=== PATIENT | male | born 1960 | race Caucasian/White ===

== ENCOUNTER 2018-09-05 09:48 | Emergency (ER) | payer MEDICAID ==
[~2018-09-05] VITALS: Ht 182.9 cm; Wt 111.6 kg
[2018-09-05 10:02] VITALS: BP 136/67
--- NOTE | 2018-09-05 11:07 | NUR ---
Patient discharged to home in stable condition. Written and verbal after care instructions given. Patient verbalizes understanding of instruction.
== END 2018-09-05 11:09 | disposition home or self-care (01) ==
LOC: ER 09:51
DX: G89.29 Other chronic pain (principal); E78.5 Hyperlipidemia, unspecified; I72.9 Aneurysm of unspecified site; Z86.73 Personal history of transient ischemic attack (TIA), and cerebral infarction without residual deficits; Z86.718 Personal history of other venous thrombosis and embolism

== ENCOUNTER 2018-10-04 10:09 | Emergency (ER) | payer MEDICAID ==
[~2018-10-04] VITALS: Ht 182.9 cm; Wt 121.1 kg
--- NOTE | 2018-10-04 10:25 | NUR ---
AAOX3, CAME TO ER C/O BLOOD IN THE STOOL AND LOWER ABDOMINAL PAIN X 2 DAYS. DENIES TAKING ANY BLOOD THINNER. RR IS EVEN AND UNLABORED WITH NAD NOTED. SKIN IS WARM AND DRY. DR YOUNGBLOOD AT BS FOR EVAL.
[2018-10-04] MEDS ORDERED: ONDANSETRON HCL/PF 4 MG/2 ML VIAL IVP ONE (10:30)
[2018-10-04] MEDS ORDERED: IV NS 0.9% 1,000 ML BAG IV ONE (10:30)
[2018-10-04] MEDS ORDERED: MORPHINE SULFATE INJ 2 MG/ML DISP.SYRIN IV ONE (10:30)
[2018-10-04] MEDS ORDERED: MORPHINE SULFATE INJ 4 MG/ML DISP.SYRIN ONE (10:38)
[2018-10-04] MEDS ORDERED: ONDANSETRON HCL/PF 4 MG/2 ML VIAL ONE (10:38)
[2018-10-04 10:45] LABS: BASOPHILS # (AUTO) 0.1 /CMM (0.0-0.2); BASOPHILS % (AUTO) 0.9 % (0.0-2.0); EOSINOPHILS % (AUTO) 2.4 % (0.0-6.0); HEMATOCRIT 43 % (39-51); HEMOGLOBIN 14.6 g/dL (13.5-17.5); LYMPHOCYTES # (AUTO) 1.8 /CMM (0.8-4.8); LYMPHOCYTES % (AUTO) 22.8 % (20.0-44.0); MEAN CORPUSCULAR HGB CONC 34 g/dl (31.0-36.0); MEAN CORPUSCULAR VOLUME 86 fL (80-96); MONOCYTES # (AUTO) 0.6 /CMM (0.1-1.30); MONOCYTES % (AUTO) 7.9 % (2.0-12.0); NEUTROPHILS # (AUTO) 5.2 /CMM (1.8-8.9); PLATELET COUNT (AUTO) 249 /CMM (150-450); RED BLOOD CELL COUNT(AUTO) 5.03 MIL/uL (4.5-6.0); WHITE BLOOD COUNT (AUTO) 7.9 K/uL (4.3-11.0)
[2018-10-04] MEDS ORDERED: FURO-145 PO (10:50)
[2018-10-04] MEDS ORDERED: RIVA10TA PO (10:50)
[2018-10-04] MEDS ORDERED: LOVA20TA2 PO (10:50)
[2018-10-04] MEDS ORDERED: TIOT18CA3 IH (10:50)
[2018-10-04 10:51] LABS: CALCIUM, SERUM 8.6 mg/dL (8.5-10.1); CREATININE 1.3 mg/dL (0.6-1.3); POTASSIUM 2.9 mmol/L (3.5-5.1)
[2018-10-04 10:57] LABS: ALBUMIN 3.1 g/dL (3.4-5.0); BILIRUBIN,DIRECT 0.1 mg/dL (0.0-0.2); BILIRUBIN,TOTAL 0.6 mg/dL (0.2-1.0); TOTAL PROTEIN, SERUM 7.1 g/dL (6.4-8.2)
--- NOTE | 2018-10-04 12:28 | NUR ---
IV removed. Catheter intact and site benign. Pressure and 4x4 applied to site. No bleeding noted.Patient discharged to home in stable condition. Written and verbalX after care instructions given. Patient verbalizes understanding of instruction.
[2018-10-04] MEDS ORDERED: METRONIDAZOLE 500 MG TABLET PO ONE (12:30)
[2018-10-04] MEDS ORDERED: CIPROFLOXACIN HCL 250 MG TABLET PO ONE (12:30)
[2018-10-04 12:32] VITALS: BP 138/80
== END 2018-10-04 12:30 | disposition home or self-care (01) ==
LOC: ER 10:13
DX: K62.5 Hemorrhage of anus and rectum (principal); K63.89 Other specified diseases of intestine; E78.5 Hyperlipidemia, unspecified; I72.9 Aneurysm of unspecified site; Z59.0 Homelessness; Z95.5 Presence of coronary angioplasty implant and graft; Z88.6 Allergy status to analgesic agent
CPT/HCPCS: 36415; 74176; 80048; 80076; 85025; 85730; 86850; 96374; 96375; 99284; A4606; J2270; J2405; J7030

== ENCOUNTER 2018-10-14 04:35 | Emergency (ER) | payer MEDICAID ==
[~2018-10-14] VITALS: Ht 182.9 cm; Wt 112.0 kg
[~2018-10-14 04:35] MED LIST: FURO-145 PO; LOVA20TA2 PO; RIVA10TA PO; TIOT18CA3 IH
--- NOTE | 2018-10-14 05:16 | NUR ---
PT BIBS. C/O "HAVING L SIDED RIB PAIN FOR AROUND 2 DAYS, BLOODY DIARRHEA WELL" -SOB -ACUTE DISTRESS AT THIS TIME. AMBULATORY W.STEADY GAIT.
[2018-10-14] MEDS ORDERED: HYDROCODONE/APAP 5/325MG 1 EACH TABLET ONE (05:20)
[2018-10-14] MEDS ORDERED: IBUPROFEN 600 MG TABLET PO ONE ×2 (05:28→06:00)
[2018-10-14] MEDS ORDERED: HYDROCODONE/APAP 5/325MG 1 EACH TABLET PO ONE (05:30)
--- NOTE | 2018-10-14 05:30 | NUR ---
V.O FROM DR PAIZ FOR 600MG MOTRIN. AWARE OF PT ALLERGIES.
--- NOTE | 2018-10-14 06:30 | NUR ---
Patient is resting comfortably in bed with eyes closed. Easily aroused. VSS
--- NOTE | 2018-10-14 07:30 | NUR ---
Patient is resting comfortably in bed with eyes closed. Easily aroused. VSS
--- NOTE | 2018-10-14 08:50 | NUR ---
Patient discharged to home in stable condition. Written and verbal after care instructions given. Patient verbalizes understanding of instruction. Patient provided with resources and states that he lives in his car. Patient was given food and signed the waiver.
[2018-10-14 09:17] VITALS: BP 122/78
== END 2018-10-14 08:55 | disposition home or self-care (01) ==
LOC: ER 04:39
DX: R07.89 Other chest pain (principal); E78.5 Hyperlipidemia, unspecified; Z59.0 Homelessness; Z95.1 Presence of aortocoronary bypass graft; Z88.6 Allergy status to analgesic agent
CPT/HCPCS: 71100; 99283; A4606

== ENCOUNTER 2019-11-26 14:12 | Emergency (ER) | payer MEDICAID, OTHER ==
[~2019-11-26] VITALS: Ht 185.4 cm; Wt 102.1 kg
[2019-11-26 14:31] VITALS: BP 154/77
--- NOTE | 2019-11-26 14:59 | NUR ---
Patient given written and verbal discharge instructions. Patient verbalizes understanding of instructions. Patient is ambulatory with steady gait. Refuses offer of care home placement. Patient given list of available shelters in surrounding area.
== END 2019-11-26 15:05 | disposition home or self-care (01) ==
LOC: ER 14:12
DX: B86 Scabies (principal); E78.5 Hyperlipidemia, unspecified; Z59.0 Homelessness; Z86.73 Personal history of transient ischemic attack (TIA), and cerebral infarction without residual deficits; Z88.6 Allergy status to analgesic agent; Z79.899 Other long term (current) drug therapy

== ENCOUNTER 2019-12-01 12:09 | Emergency (ER) | payer OTHER ==
[~2019-12-01] VITALS: Ht 182.9 cm; Wt 108.9 kg
[2019-12-01 12:10] VITALS: BP 144/67
[2019-12-01 13:44] LABS: BASOPHILS # (AUTO) 0.1 /CMM (0.0-0.2); BASOPHILS % (AUTO) 0.9 % (0.0-2.0); EOSINOPHILS % (AUTO) 1.3 % (0.0-6.0); HEMATOCRIT 47 % (39-51); HEMOGLOBIN 15.8 g/dL (13.5-17.5); LYMPHOCYTES # (AUTO) 1.8 /CMM (0.8-4.8); LYMPHOCYTES % (AUTO) 20.8 % (20.0-44.0); MEAN CORPUSCULAR HGB CONC 34 g/dl (31.0-36.0); MEAN CORPUSCULAR VOLUME 89 fL (80-96); MONOCYTES # (AUTO) 0.6 /CMM (0.1-1.30); MONOCYTES % (AUTO) 6.6 % (2.0-12.0); NEUTROPHILS # (AUTO) 6.1 /CMM (1.8-8.9); NEUTROPHILS % (AUTO) 70.4 % (43.0-81.0); PLATELET COUNT (AUTO) 272 /CMM (150-450); RED BLOOD CELL COUNT(AUTO) 5.29 MIL/uL (4.5-6.0); WHITE BLOOD COUNT (AUTO) 8.7 K/uL (4.3-11.0)
[2019-12-01 13:52] LABS: CALCIUM, SERUM 8.4 mg/dL (8.5-10.1); CREATININE 1.4 mg/dL (0.6-1.3); POTASSIUM 3.6 mmol/L (3.5-5.1)
== END 2019-12-01 14:53 | disposition home or self-care (01) ==
LOC: ER 12:15
DX: L02.415 Cutaneous abscess of right lower limb (principal); E78.5 Hyperlipidemia, unspecified; Z88.6 Allergy status to analgesic agent; Z59.0 Homelessness; Z79.899 Other long term (current) drug therapy; Z86.73 Personal history of transient ischemic attack (TIA), and cerebral infarction without residual deficits
CPT/HCPCS: 36415; 80048-TC; 85025-TC; 87040-TC

== ENCOUNTER 2020-12-13 15:15 | Emergency (ER) | payer OTHER ==
[~2020-12-13] VITALS: Ht 170.2 cm; Wt 116.1 kg
--- NOTE | 2020-12-13 15:35 | NUR ---
THE PATIENT PRESENTED TO ER FOR C/O RT LEG PAIN & BLOOD IN STOOL. HX OF DVT PER PATIENT. RATES PAIN 8/10. ATTACHED TO THE MONITOR. WILL CONTINUE TO MONITOR THE PATIENT.
[2020-12-13 16:23] LABS: BASOPHILS % (AUTO) 0.4 % (0.0-2.0); EOSINOPHILS % (AUTO) 1.5 % (0.0-6.0); HEMATOCRIT 48 % (39-51); HEMOGLOBIN 16.1 g/dL (13.5-17.5); LYMPHOCYTES # (AUTO) 2.1 /CMM (0.8-4.8); MEAN CORPUSCULAR HGB CONC 34 g/dl (31.0-36.0); MEAN CORPUSCULAR VOLUME 96 fL (80-96); NEUTROPHILS # (AUTO) 8.9 /CMM (1.8-8.9); NEUTROPHILS % (AUTO) 73.1 % (43.0-81.0); PLATELET COUNT (AUTO) 277 /CMM (150-450); RED BLOOD CELL COUNT(AUTO) 4.99 MIL/uL (4.5-6.0); WHITE BLOOD COUNT (AUTO) 12.2 K/uL (4.3-11.0)
--- NOTE | 2020-12-13 16:32 | NUR ---
URINE COLLECTED AND SENT TO THE LAB
[2020-12-13 16:35] LABS: CALCIUM, SERUM 8.2 mg/dL (8.5-10.1); CREATININE 1.4 mg/dL (0.6-1.3); POTASSIUM 3.7 mmol/L (3.5-5.1)
[2020-12-13 16:46] LABS: BILIRUBIN,URINE NEGATIVE (NEGATIVE); COLOR,URINE YELLOW (YELLOW); LEUKOCYTE ESTERASE ,URINE NEGATIVE (NEGATIVE); NITRITE, URINE NEGATIVE (NEGATIVE); PH,URINE 5.5 (5.0-8.0); PROTEIN,URINE NEGATIVE (NEGATIVE); UGLUCOSE NEGATIVE (NEGATIVE); UROBILINOGEN,URINE 0.2 EU/dL (0.2)
[2020-12-13] MEDS ORDERED: TRAM50TA2 PO (16:46)
[2020-12-13] MEDS ORDERED: TRAMADOL HCL 50 MG TABLET ONE (16:48)
[2020-12-13 17:00] LABS: BACTERIA,URINE RARE /HPF (None Seen); SQUAMOUS EPITHELIAL CELL,UR 0-2 /HPF (None Seen); WBC,URINE 0-2 /HPF (0-3)
[2020-12-13] MEDS ORDERED: TRAMADOL HCL 50 MG TABLET PO ONE (17:00)
[2020-12-13] MEDS ORDERED: CEFTRIAXONE 1GM BAG (ER ONLY) 50 ML IV ONE (17:00)
--- NOTE | 2020-12-13 17:00 | NUR ---
The patient alert and oriented x4. Patient discharged to home in stable condition. Written and verbal after care instructions given. Patient verbalizes understanding of instruction.
[2020-12-13 17:01] VITALS: BP 134/81
== END 2020-12-13 17:01 | disposition home or self-care (01) ==
LOC: ER 15:15
DX: M79.604 Pain in right leg (principal); K62.5 Hemorrhage of anus and rectum; E78.5 Hyperlipidemia, unspecified; Z86.718 Personal history of other venous thrombosis and embolism; Z88.6 Allergy status to analgesic agent; Z59.0 Homelessness; Z79.899 Other long term (current) drug therapy
CPT/HCPCS: 36415; 80048-TC; 81001; 85025-TC; 85730-TC; 93971-TC

== ENCOUNTER 2020-12-21 13:53 | Emergency (ER) | payer OTHER ==
[~2020-12-21] VITALS: Ht 182.9 cm; Wt 117.0 kg
[~2020-12-21 13:53] MED LIST changes: +TRAM50TA2 PO
--- NOTE | 2020-12-21 14:18 | NUR ---
patient came in to the er c/o right foot pain s/p tripped and fall while getting out of his car x 6 days, 10/10 pain scale. On room air, breathing evenly and unlabored. Connected to the monitor and pulse ox. Kept comfortable, will continue to monitor accordingly.
[2020-12-21 14:43] LABS: BASOPHILS # (AUTO) 0.1 /CMM (0.0-0.2); BASOPHILS % (AUTO) 0.5 % (0.0-2.0); EOSINOPHILS % (AUTO) 1.1 % (0.0-6.0); HEMATOCRIT 48 % (39-51); HEMOGLOBIN 16.1 g/dL (13.5-17.5); LYMPHOCYTES # (AUTO) 2.2 /CMM (0.8-4.8); LYMPHOCYTES % (AUTO) 17.2 % (20.0-44.0); MEAN CORPUSCULAR HGB CONC 34 g/dl (31.0-36.0); MEAN CORPUSCULAR VOLUME 96 fL (80-96); MONOCYTES # (AUTO) 0.9 /CMM (0.1-1.30); MONOCYTES % (AUTO) 6.8 % (2.0-12.0); NEUTROPHILS # (AUTO) 9.5 /CMM (1.8-8.9); NEUTROPHILS % (AUTO) 74.4 % (43.0-81.0); PLATELET COUNT (AUTO) 254 /CMM (150-450); RED BLOOD CELL COUNT(AUTO) 4.98 MIL/uL (4.5-6.0); WHITE BLOOD COUNT (AUTO) 12.8 K/uL (4.3-11.0)
--- NOTE | 2020-12-21 14:56 | NUR ---
CALLED DR. PEREIRA, SPEAKING WITH DR. HELLER.
[2020-12-21 14:59] LABS: CALCIUM, SERUM 8.7 mg/dL (8.5-10.1); CARBON DIOXIDE 24 mmol/L (21-32); CHLORIDE 103 mmol/L (98-107); CREATININE 1.5 mg/dL (0.6-1.3); GLUCOSE 114 mg/dL (74-106); POTASSIUM 3.5 mmol/L (3.5-5.1); SODIUM SERUM 139 mmol/L (136-145); UREA NITROGEN, BLOOD 21 mg/dL (7-18)
[2020-12-21] MEDS ORDERED: MORPHINE SULFATE INJ 2 MG/ML DISP.SYRIN IV ONE ×2 (15:00→18:30)
[2020-12-21] MEDS ORDERED: ONDANSETRON HCL/PF 4 MG/2 ML VIAL IVP ONE (15:00)
[2020-12-21] MEDS ORDERED: TRAM50TA2 PO (15:03)
[2020-12-21] MEDS ORDERED: ONDANSETRON HCL/PF 4 MG/2 ML VIAL ONE (15:09)
[2020-12-21] MEDS ORDERED: MORPHINE SULFATE INJ 4 MG/ML DISP.SYRIN ONE ×2 (15:09→18:06)
[2020-12-21] MEDS ORDERED: HEPARIN INFUSION/D5W 500 ML IV ONE (16:00)
[2020-12-21] MEDS ORDERED: HEPARIN SODIUM, PORCINE 5000 UNITS/1 ML VIAL IV ONE (16:00)
[2020-12-21] MEDS ORDERED: HEPARIN SODIUM, PORCINE 5000 UNITS/1 ML VIAL ONE (16:34)
--- NOTE | 2020-12-21 16:45 | NUR ---
JOSHUA MCCARTHY AWAITING THE LOWER EXTREMETY ARTERIAL STUDY TO BE READ. CALLED RADIOLOGY.
--- NOTE | 2020-12-21 17:15 | NUR ---
LAB CALLED RE: COVID NEGATIVE RESULT.
--- NOTE | 2020-12-21 18:47 | NUR ---
CALLED RADIOLOGY AGAIN AWAITING REPORT TO BE READ THAT WAS DONE AT [id number]
--- NOTE | 2020-12-21 18:48 | NUR ---
HYDRAULIC BILLET MAKER SEJAL CALLED AT [phone] SINCE WE HAVEN'T RECEIVE THE ARTERIAL STUDY RESULT UP TO NOW.
--- NOTE | 2020-12-21 18:51 | NUR ---
SHARI CALLED DR. REYES VASCULAR SPEAKING WITH DR. HELLER
--- NOTE | 2020-12-21 20:55 | NUR ---
PT PLACED ON O2 VIA NC @ 4LPM PT NOTED SATTING AT 91% ON RA.
[2020-12-21] MEDS ORDERED: MAG HYDROX/AL HYDROX/SIMETH 30 ML UDC ONE (22:21)
[2020-12-21] MEDS ORDERED: MAG HYDROX/AL HYDROX/SIMETH 30 ML UDC PO ONE (22:30)
[2020-12-22] MEDS ORDERED: MORPHINE SULFATE INJ 4 MG/ML DISP.SYRIN ONE ×2 (00:17→05:40)
[2020-12-22] MEDS ORDERED: MORPHINE SULFATE INJ 2 MG/ML DISP.SYRIN IV ONE (00:30)
--- NOTE | 2020-12-22 00:47 | NUR ---
[facility] CALLED FOR HIGHER LEVEL OF CARE.
--- NOTE | 2020-12-22 00:52 | NUR ---
CALL BACK FROM RYLEE SY[facility]. NO BED AVAILABILITY
--- NOTE | 2020-12-22 00:54 | NUR ---
[facility] CALLED FOR HIGHER LEVEL OF CARE. [facility] FAXED.
--- NOTE | 2020-12-22 01:06 | NUR ---
CALL FROM [facility]. PT ACCEPTED TO [facility], ROOM 5A-118A. DR REYES. # FOR REPORT [phone]
--- NOTE | 2020-12-22 01:10 | NUR ---
[facility] CALLED FOR CCT TRANSPORT. NO CCT AVAILABLE.
--- NOTE | 2020-12-22 01:13 | NUR ---
[facility] CALLED FOR CCT TRANSPORT. NO RN AVAILABLE.
--- NOTE | 2020-12-22 01:26 | NUR ---
INCREASED HEPARIN INFUSION BY 400 UNITS. NOW RUNNING AT 2200UNITS/HR
[2020-12-22] MEDS ORDERED: HEPARIN SODIUM, PORCINE 5000 UNITS/1 ML VIAL ONE (01:27)
--- NOTE | 2020-12-22 01:31 | NUR ---
[facility] CALLED FOR TRANSPORT. TRIP# [id number]
--- NOTE | 2020-12-22 01:33 | NUR ---
IVP 8000UNITS OF HEPARIN GIVEN.
[2020-12-22] MEDS ORDERED: HEPARIN SODIUM,PORCINE/PF 50 UNIT/5 ML DISP.SYRIN IV ONE (02:00)
--- NOTE | 2020-12-22 02:52 | NUR ---
Call back from [facility] the Car. [facility] eta [phone].
--- NOTE | 2020-12-22 02:55 | NUR ---
PTT REDRAW [id number]
--- NOTE | 2020-12-22 03:07 | NUR ---
REPORT GIVEN TO DAR FREDERICK FOR JORGE
--- NOTE | 2020-12-22 05:24 | NUR ---
PT REMAINS ASLEEP, VSS.
[2020-12-22] MEDS ORDERED: MORPHINE SULFATE INJ 10 MG/ML DISP.SYRIN IV ONE (06:00)
--- NOTE | 2020-12-22 07:15 | NUR ---
received report from cardiology consultants, patient awake, and alert, in no distress, no signs and symptoms of bleeding noted. Heparin drip infusing at 2200units/kg/hr. Will continue to monitor accordingly.
--- NOTE | 2020-12-22 08:42 | NUR ---
Held heparin drip x 1 hour, PTT 91.4 secs. Will follow heparin drip protocol after 1 hour.
[2020-12-22 08:53] VITALS: BP 118/71
--- NOTE | 2020-12-22 10:08 | NUR ---
PATIENT TRANSFERRED TO [facility], IN STABLE CONDITION. REPORT GIVEN TO PARAFFIN PLANT OPERATOR. IN NO DISTRESS. PAPERWORKS GIVEN TO PARAFFIN PLANT OPERATOR.
== END 2020-12-22 10:10 | disposition short-term general hospital (02) ==
LOC: ER 13:56
DX: I73.9 Peripheral vascular disease, unspecified (principal); E78.5 Hyperlipidemia, unspecified; Z86.718 Personal history of other venous thrombosis and embolism; Z79.01 Long term (current) use of anticoagulants; Z86.73 Personal history of transient ischemic attack (TIA), and cerebral infarction without residual deficits; Z59.0 Homelessness; Z79.899 Other long term (current) drug therapy; M85.80 Other specified disorders of bone density and structure, unspecified site; Z20.822 Contact with and (suspected) exposure to COVID-19
CPT/HCPCS: 36415 ×2; 71045; 73630; 80048; 84484; 85025; 85610 ×3; 85730 ×3; 87426; 93005; 93926; 96365 ×2; 96366 ×2; 96375 ×2; 96376 ×2; 99285; C9803; J1644 ×4; J2270 ×4; J2405; J1642

== ENCOUNTER 2021-02-18 10:19 | Inpatient (IN) | payer OTHER ==
[~2021-02-18] VITALS: Ht 185.4 cm; Wt 112.5 kg
--- NOTE | 2021-02-18 10:42 | NUR ---
PT ARRIVED TO ER WITH PAIN AND DRAINAGE TO SITE OF R BKA. ALERT AND ORIENTED X3.
[2021-02-18] MEDS ORDERED: HYDROCODONE/APAP 5/325MG TABLET PO ONE (11:00)
[2021-02-18] MEDS ORDERED: HYDROCODONE/APAP 5/325MG TABLET ONE (11:03)
--- NOTE | 2021-02-18 11:08 | NUR ---
MEDICATION NORCO [phone] GIVEN
[2021-02-18 11:14] LABS: BASOPHILS # (AUTO) 0.1 K/uL (0.0-0.2); BASOPHILS % (AUTO) 0.7 % (0.0-2.0); EOSINOPHILS % (AUTO) 0.6 % (0.0-6.0); HEMATOCRIT 41 % (39-51); HEMOGLOBIN 13.7 g/dL (13.5-17.5); LYMPHOCYTES # (AUTO) 2.3 K/uL (0.8-4.8); LYMPHOCYTES % (AUTO) 15.5 % (20.0-44.0); MEAN CORPUSCULAR HGB CONC 33 g/dl (31.0-36.0); MEAN CORPUSCULAR VOLUME 88 fL (80-96); MONOCYTES # (AUTO) 1.4 K/uL (0.1-1.30); MONOCYTES % (AUTO) 9.3 % (2.0-12.0); NEUTROPHILS # (AUTO) 11.2 K/uL (1.8-8.9); NEUTROPHILS % (AUTO) 73.9 % (43.0-81.0); PLATELET COUNT (AUTO) 421 K/uL (150-450); RED BLOOD CELL COUNT(AUTO) 4.69 MIL/uL (4.5-6.0); WHITE BLOOD COUNT (AUTO) 15.2 K/uL (4.3-11.0)
[2021-02-18 11:37] LABS: CALCIUM, SERUM 9.1 mg/dL (8.5-10.1); CREATININE 2.5 mg/dL (0.6-1.3); POTASSIUM 3.4 mmol/L (3.5-5.1)
[2021-02-18 11:43] LABS: ALBUMIN 3.6 g/dL (3.4-5.0); BILIRUBIN,DIRECT 0.2 mg/dL (0.0-0.2); BILIRUBIN,TOTAL 0.6 mg/dL (0.2-1.0); TOTAL PROTEIN, SERUM 9.2 g/dL (6.4-8.2)
--- NOTE | 2021-02-18 13:58 | NUR ---
wound swab from right bka wound done and sent to the lab
--- NOTE | 2021-02-18 14:12 | NUR ---
room 109
--- NOTE | 2021-02-18 14:43 | NUR ---
report given to nurse Soon
--- NOTE | 2021-02-18 15:00 | NUR ---
THE PATIENT IS TRANSFERED TO ROOM 109 PER POLICY
--- NOTE | 2021-02-18 15:10 | NUR ---
RN NOTE PATIENT OBSERVED ON BED, AWAKE ALERT AND ORIENTED X4, ADMITTING PATIENT FROM ER, REPORT RECIEVED FROM CHARGE NURSE, WILL ADMIT TO PATIENT ON ROOM 109.
--- NOTE | 2021-02-18 15:47 | NUR ---
RN NOTE PATIENT ALERT AND ORIENTED X4 ABLE TO VERBALIZE NEEDS, PATIENT REFUSED BODY CHECK ASSESSMENT ON, MD MADE AWARE, PATIENT WITH IV SITE ON LEFT HAND PATENT FLUSHING WELL, WILL CONTINUE TO MONITOR PATIENT.
--- NOTE | 2021-02-18 15:53 | NUR ---
RN NOTE PATIENT NOTED WITH A EDGAR PACK, PATIENT REFUSED EDGAR PACK TO BE INSPECTED, ASK IF THERE IS ANY SHARP OBJECT OR ANY SENIOR COMMISSIONS ANALYST OR LIGHT MATCHES OR ANY ILLEGAL SUBSTANCE, PATIENT VERBALIZE HE DOES NOT OWN ANY OF THAT ITS ONLY HIS WALLET AND PHONE.
[2021-02-18 16:00] VITALS: BP 122/70
[2021-02-18] MEDS ORDERED: ONDANSETRON HCL/PF 4 MG/2 ML VIAL IVP PRN (16:30)
[2021-02-18] MEDS ORDERED: MAGNESIUM HYDROXIDE 30 ML UDC PO PRN (16:30)
[2021-02-18] MEDS ORDERED: DEXTROSE 50%-WATER 50 ML DISP.SYRIN IV PRN (16:30)
[2021-02-18] MEDS ORDERED: ACETAMINOPHEN 325 MG TABLET PO PRN (16:30)
[2021-02-18] MEDS ORDERED: Z GUARD REMEDY 2 OZ OINT TP PRN (16:30)
[2021-02-18] MEDS ORDERED: MAG HYDROX/AL HYDROX/SIMETH 30 ML UDC PO PRN (16:30)
[2021-02-18] MEDS ORDERED: *INSULIN REGULAR(HUMULIN R)HUM 100 UNIT/ML VIAL SQ PRN (16:30)
[2021-02-18] MEDS: BLOOD SUGAR DIAGNOSTIC 1 EACH STRIP VI SCH ×2 (17:02→21:37)
[2021-02-18] MEDS: IV NS 0.9% 1,000 ML IV SCH (17:10)
[2021-02-18] MEDS: INSULIN REGULAR, HUMAN 100 UNIT/ML 3 ML VIAL SQ PRN (17:37)
[2021-02-18] MEDS: RIVAROXABAN 15 MG TABLET PO SCH (17:38)
[2021-02-18] MEDS: VANCOMYCIN 1 GM in IV D5W 250ml IV SCH (17:40)
--- NOTE | 2021-02-18 19:25 | NUR ---
RN NOTE PATIENT OBSERVED IN BED, AWAKE, BREATHING EVEN AND UNLABORED, ON IFV NORMAL NS @75CC/HR ON LEFT AC, IV ATB GIVEN ORDERED, NO ASE NOTED, ENDORSED TO NOC SHIFT WOUND TREATMENT DONE ON RIGHT BKA, REFUSED LEFT HEEL WOUND TREATMENT, MD MADE NOTIFIED, WILL CONTINUE TO MONITOR, BED WHEELS LOCK, CALL LIGHT WITHIN REACH, SAFETY MEASURES OBSERVED.
[2021-02-18] MEDS: IPRATROPIUM NEB FS 0.5 MG/2.5 ML AMPUL.NEB NEB SCH (19:30)
--- NOTE | 2021-02-18 20:00 | NUR ---
RN NOTE PT DECLINED ASSESSMENT STATING THE OTHER NURSE ALREADY CHECKED HIM. PT HAS EDGAR PACK ON HIS CHEST THAT HE WILL NOT REMOVE OR ALLOW TO BE CHECKED. PT STATES HE IS NOT ABOUT TO LOSE HIS THINGS AGAIN.
--- NOTE | 2021-02-18 20:01 | NUR ---
PT REFUSED VITAL SIGNS
[2021-02-18 21:00] VITALS: BP 132/82
--- NOTE | 2021-02-18 21:40 | NUR ---
RN NOTE PT C/O RIGHT ELBOW AND IS REQUESTING XRAY. PT STATES HE FELL FOUR TIMES PRIOR TO COMING TO HOSPITAL. PER PT HE CAN NOT EXTEND ARM. NOTIFIED [employer] OFFICER RACHELLE ONEILL W/ORDERS FOR ELBOW XRAY NOTED.
[2021-02-18] MEDS: TRAMADOL HCL 50 MG TABLET PO PRN (21:49)
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
[2021-02-19] MEDS: IPRATROPIUM NEB FS 0.5 MG/2.5 ML AMPUL.NEB NEB SCH ×4 (01:30→19:30)
--- NOTE | 2021-02-19 01:48 | NUR ---
RT neb tx not given due to pending covid lab results
[2021-02-19 04:00] VITALS: BP 107/55
[2021-02-19] MEDS: TRAMADOL HCL 50 MG TABLET PO PRN (04:41)
--- NOTE | 2021-02-19 04:48 | NUR ---
PLANNING COORDINATOR PT DECLINED TO HAVE IF FLUIDS RUNNING, PT LAYING ON IV TUBING SETTING OFF ALARM MULTIPLE TIMES. IV SITE CHANGED PT SAID IF WAS THE IVS FAULT NOT HIS HOWEVER PT REPEATEDLY PUT PRESSURE ON TUBING CAUSING OCCLUSION AND PT WOULD BECOME UPSET THE IV WAS ALARMING.
--- NOTE | 2021-02-19 04:53 | NUR ---
MS RN PT GIVEN TRAMADOL/ ULTRAM FOR ELBOW PAIN. PT STARTED "CRYING" WHEN HE THOUGHT HE WAS GETTING MOTRIN. PT YELLING HE WANTED THE LITTLE WHITE PILL.
[2021-02-19] MEDS: IV NS 0.9% 1,000 ML IV SCH ×2 (05:04→22:46)
--- NOTE | 2021-02-19 06:12 | NUR ---
RN NOTE PT REFUSED BLOOD DRAW. PT TOLD LINK WIRE FABRIC MACHINE OPERATOR TO GET BLOOD FROM SALINE LOCK. EXPLAINED TO PT WE ARE UNABLE TO GET BLOOD FROM IV AFTER IT HAS BEEN ESTABLISHED. PT STILL REFUSED.
--- NOTE | 2021-02-19 07:10 | NUR ---
RN NOTE PATIENT OBSERVED IN BED, MAKING CONVERSATION BY HIMSELF IN THE ROOM, PATIENT IS FOR PSYCH CONSULT ORDERED BY DR. DICKINSON, [facility] NURSE ENDORSED THAT PATIENT HAS BEEN REFUSING BLOOD DRAW FOR AM LABS AND WOUND TREATMENT, PATIENT IS FOR WOUND CONSULT ORDERED, AFEBRILE AT THIS TIME, PATIENT REFUSED HS BLOOD SUGAR FINGER STICK CHECK, MD WAS MADE AWAREBY [facility] NURSE, WILL CONTINUE TO MONITOR PATIENT, SAFETY MEASURES OBSERVED, BED ALARM ON, BED WHEELS LOCK, CALL LIGHT WITHIN REACH.
[2021-02-19 08:00] VITALS: BP 120/71
[2021-02-19] MEDS ORDERED: RIVAROXABAN 10 MG TABLET PO SCH (09:00)
[2021-02-19] MEDS: BLOOD SUGAR DIAGNOSTIC 1 EACH STRIP VI SCH ×4 (09:20→23:00)
[2021-02-19] MEDS: ATORVASTATIN 10 MG TABLET PO SCH (09:27)
[2021-02-19] MEDS: FUROSEMIDE 20 MG TABLET PO SCH (09:28)
[2021-02-19] MEDS: HYDROCODONE/APAP 5/325MG TABLET PO PRN ×2 (09:28→16:24)
--- NOTE | 2021-02-19 09:42 | NUR ---
WOUND CARE CONSULT: PT PRESENTS WITH RT BELOW KNEE AMPUTATION SITE WITH DEHISCENCE AND BROWN NECROTIC TISSUE, NO DRAINAGE, PRESENT ON ADMISSION. LEFT FOOT ALSO HAS BLISTERING AND AREAS OF DISCOLORATION, DRY ABRASION/BURN, PRESENT ON ADMISSION. DPM CONSULT CALLED TO DR CASSIDY. PT DEMONSTRATES ABILITY TO TURN AND REPOSITION IN BED. PT IS VERY ANGRY AND HOSTILE AT TIMES BUT WAS COOPERATIVE WITH SKIN ASSESSMENT. DEFER TO DPM FOR WOUND TREATMENT PLAN. MD IN AGREEMENT WITH PLAN OF CARE.
--- NOTE | 2021-02-19 09:51 | NUR ---
RN NOTE PATIENT REFUSED INSULIN ADMINISTRATION BS OF 182, WITNESS BY BETHANY WOUND NURSE, PAIN MEDICATION ADMINISTERED PRN FOR PAIN.
--- NOTE | 2021-02-19 10:00 | NUR ---
RN NOTE FOLLOWED UP WITH GBS FOR PATIENT CONSULT, UNDER DR. LES CARTER.
--- NOTE | 2021-02-19 11:05 | NUR ---
"Director Of Athletics consult: director of ancillary services consult requested for homelessness. Per chart, patient presented to the hospital on 02/18/21 with complaints of pain. Patient is a 60-year-old, male. SW met with patient at his bedside in the med-surg unit. Patient was alert and oriented x4. Patient was calm and resting. Per OTONIEL Sosa, pending a psychiatric consult with Dr. Parham. Patient stated that he is currently homeless and has been homeless for the last three years. Patient stated that his car is parked at the hospital. Patient stated that he currently uses a wheelchair. Patient reported that he does not have access to social support. SW asked patient if he currently has a source of income and patient reported SSI. Patient denied current substance use. SW assessed patient's history of mental illness and patient denied history. Patient denied SI/HI. SW discussed discharge plans with the patient. Patient requested to be D/C to a SNF versus D/C to his car that is parked at the hospital. SW informed patient that he would be transported by ambulance if he is accepted to a SNF. Patient expressed concern that he will lose his car if he is transferred to a SNF directly from the hospital. SW offered to provide the patient with a list of SNF's. Patient accepted the resources and will follow up independently. SW offered the patient homeless and outpatient mental health resources. Patient accepted the resources and thanked SW. Patient signed the homeless waiver and SW filed waiver in the patient's chart. PLAN: Patient will D/C to his car that is parked at the hospital. No further SS intervention at this time, however, SW will remain available as needed. RESOURCES: [facility] [address] [place] [address] [facility] [address] [place] [address] ~44.6 mi [facility] [place] [address] [place] [address] ~41 mi [facility] [address] [place] [address] ~48.1 mi [facility] [address] [place] [address] ~50.6 mi Year-round shelters: [place] [facility] [address] [place] [address] ; [place] [facility] [address] [place] [address]; [facility] [id number] [place] e. [facility] [address] SPA 4 | [facility] [place] Provider: First to Serve Address: [address], [address] # of Beds: 48 Population Served: [facility] Provider: First to Serve Address: [address] [facility], [address] # of Beds: 73 Population Served: [facility] 6 | [facility] Provider: Home at Last Address: [address] [facility], [address] # of Beds: 63 Population Served: [facility] 3 | [facility] Provider: [facility] [place] Address: [address] [place] [address] # of Beds: 75 Population Served: [facility] 8 | [facility] Provider: [facility] [place] Address: [address] [facility] [address] # of Beds: 80 Population Served: [facility] 1 | [facility] Provider: [facility] [place] Address: [address] [place] [address], [address] # of Beds: 85 Population Served: [facility] 2 | [facility] Provider: [place] [facility] [place] Address: Confidential (please call for location) # of Beds: 52 Population Served: [facility] 4 | [facility] Provider: Garland Hu Address: [address] [facility], [address] # of Beds: 49 Population Served: [facility] Provider: First To Serve Address: [address] [facility], [address] # of Beds: 27 Population Served: [employer] [employer]: [facility]: [address] [place] ; [facility] [place] [facility] [address] [facility] ; [facility] [address], [place] Sharlene . Food Resources: [place] [facility] at [facility]- [address] [place]; Meet Each Need with Dignity ([facility]) [address] [facility]; [facility] [address] [facility]; [facility] [address] [facility] [place]. Mental Health resources provided: [facility] [address] [place], [place] [id number] ; [facility] [address] [facility] [address], [place], [place] [id number] ; [facility] [address] [facility] [place] [address] ; [facility] [address] [place], [place] [id number] Healthcare Clinics: [facility] [address] [facility], [address] [place]. [place] ; [facility] [address] [facility] [address] [place] [address]; [facility] [address] [facility]. [place] [phone] Counseling--Outpatient [facility] [address] [facility], [place] [address] (Specializes in in-depth psychotherapy for emotional distress: anxiety, depression, interpersonal conflicts, life transitions, childhood abuse) PSYCHIATRIC OUTPATIENT SERVICES [facility] Partial Hospitalization and Intensive Outpatient Program (Managed Care and [place] Only) [address] [facility] [id number] [facility] Partial Hospitalization and Outpatient Program [address] [place] [address] [facility] Partial Hospitalization and Outpatient Program [address] [place], [place] [id number] FELA ARITA [facility] [address] [place] [address] [facility] Partial Hospitalization and Outpatient Program [address] [place], [place] [phone] "
--- NOTE | 2021-02-19 12:00 | NUR ---
RN NOTE PATIENT REFUSING BS CHECK, PATIENT IS ALERT AND ORIENTED ABLE TO MAKE DECISION, MD NOTIFIED.
[2021-02-19 16:00] VITALS: BP 133/81
[2021-02-19] MEDS: CALCIUM CARBONATE 500 MG TAB.CHEW PO PRN (16:31)
[2021-02-19] MEDS: RIVAROXABAN 15 MG TABLET PO SCH (16:33)
[2021-02-19] MEDS: VANCOMYCIN 1 GM in IV D5W 250ml IV SCH (17:27)
--- NOTE | 2021-02-19 17:30 | NUR ---
RN NOTE PATIENT REFUSED ADL CARE AND VITAL SIGNS.
--- NOTE | 2021-02-19 18:46 | NUR ---
RN NOTE PATIENT OBSERVED IN BED, MAKING CONVERSATION BY HIMSELF IN THE ROOM, PATIENT IS BY PSYCH CONSULT PATIENT REFUSED TREATMENT, PATIENT REFUSED BLOOD DRAW FOR AM LABS AND PM LABS ,WOUND TREATMENT DONE, PATIENT IS SEEN BY WOUND NURSE, AFEBRILE AT THIS TIME, PATIENT REFUSED HS BLOOD SUGAR FINGER STICK CHECK AND INSULIN, PATIENT IF ON LEFT FORE ARM PATENT AND INFUSING WELL , MD WAS MADE AWARE, WILL CONTINUE TO MONITOR PATIENT, SAFETY MEASURES OBSERVED, BED ALARM ON, BED WHEELS LOCK, CALL LIGHT WITHIN REACH. WILL ENDORSE TO [facility] NURSE.
--- NOTE | 2021-02-19 19:48 | NUR ---
RT HHN TREATMENT NOT GIVEN DUE TO ALEXSANDRA PENDING RESULTS. RN AWARE. Addendum: 02/19/21 at 1949 by INEZ HELLER RT Amended: Links added.
[2021-02-19 20:00] VITALS: BP 114/76
[2021-02-19] MEDS: INSULIN REGULAR, HUMAN 100 UNIT/ML 3 ML VIAL SQ PRN (23:01)
[2021-02-20] VITALS: BP 101/67
[2021-02-20] MEDS: IPRATROPIUM NEB FS 0.5 MG/2.5 ML AMPUL.NEB NEB SCH ×4 (01:30→19:30)
[2021-02-20] MEDS: HYDROCODONE/APAP 5/325MG TABLET PO PRN ×5 (02:46→20:49)
[2021-02-20] MEDS: LORAZEPAM 1 MG TABLET PO PRN ×5 (02:46→20:49)
--- NOTE | 2021-02-20 06:14 | NUR ---
RN notes Alert and oriented x 4. Non-ambulatory. Wound dehiscence on the left below the knee amputation site. Complaint of pain and discomfort, Ulysses given, with relief. Patient requested Ativan for anxiety, MD approved and ordered 1 mg x 1, with help. In no apperent distress, breathing even and unlabored. Vital signs wnl. Kept clean and dry. Will endorse to next shift for continuity of care.
[2021-02-20 06:29] LABS: BASOPHILS # (AUTO) 0.1 K/uL (0.0-0.2); BASOPHILS % (AUTO) 0.5 % (0.0-2.0); HEMATOCRIT 41 % (39-51); HEMOGLOBIN 13.4 g/dL (13.5-17.5); LYMPHOCYTES # (AUTO) 2.8 K/uL (0.8-4.8); LYMPHOCYTES % (AUTO) 24.5 % (20.0-44.0); MEAN CORPUSCULAR HGB CONC 33 g/dl (31.0-36.0); MEAN CORPUSCULAR VOLUME 88 fL (80-96); MONOCYTES % (AUTO) 8.9 % (2.0-12.0); NEUTROPHILS # (AUTO) 7.4 K/uL (1.8-8.9); NEUTROPHILS % (AUTO) 64.1 % (43.0-81.0); PLATELET COUNT (AUTO) 365 K/uL (150-450); RED BLOOD CELL COUNT(AUTO) 4.64 MIL/uL (4.5-6.0); WHITE BLOOD COUNT (AUTO) 11.5 K/uL (4.3-11.0)
[2021-02-20 08:00] VITALS: BP 110/86
[2021-02-20] MEDS: FUROSEMIDE 20 MG TABLET PO SCH (08:00)
[2021-02-20] MEDS: ATORVASTATIN 10 MG TABLET PO SCH (08:00)
--- NOTE | 2021-02-20 08:00 | NUR ---
RN Note: Pt received alert awake oriented X 4. On RA, no breathing distress noted. Found IV dislodged, applied pressure dressing. Encourage to use call light for assistance. Safety measures observed. Call light within reach. Continue to monitor.
--- NOTE | 2021-02-20 08:14 | NUR ---
HHN TX NOT GIVEN DUE TO PENDING COVID RESULTS. NURSE AWARE. Addendum: 02/20/21 at 0815 by MYLES HAMILTON RT Amended: Links added.
[2021-02-20] MEDS: BLOOD SUGAR DIAGNOSTIC 1 EACH STRIP VI SCH ×4 (08:15→20:59)
[2021-02-20] MEDS: IV NS 0.9% 1,000 ML IV SCH ×2 (08:30→20:48)
[2021-02-20 08:51] LABS: CREATININE 1.3 mg/dL (0.6-1.3); POTASSIUM 3.7 mmol/L (3.5-5.1)
[2021-02-20] MEDS ORDERED: VANCOMYCIN 1 GM in IV D5W 250ml IV SCH (11:00)
[2021-02-20 12:00] VITALS: BP 147/79
[2021-02-20] MEDS: INSULIN REGULAR, HUMAN 100 UNIT/ML 3 ML VIAL SQ PRN (12:39)
--- NOTE | 2021-02-20 13:57 | NUR ---
RN Note: Pt refused wound care on left foot/heel wound. Education provided importance of wound care. Pt refused at this time. IV insertion attempted multiple times, unsuccessful. Order for Midline insertion. Waiting for IV insertion RN. lapping machine tender & Note Keeper aware.
[2021-02-20 16:00] VITALS: BP 119/69
[2021-02-20] MEDS: RIVAROXABAN 15 MG TABLET PO SCH (16:15)
[2021-02-20] MEDS: CEFEPIME 2 GM in IV D5W 100 ML IV SCH (16:16)
[2021-02-20] MEDS: VANCOMYCIN 1 GM in IV D5W 250ml IV SCH (17:03)
--- NOTE | 2021-02-20 17:09 | NUR ---
PATIENT RECEIVED ON ROOM AIR. Q6 HHN TX NOT GIVEN DUE TO PENDING COVID RESULTS. NO RESPIRATORY DISTRESS NOTED. SATURATIONS AT 95-97%
--- NOTE | 2021-02-20 18:00 | NUR ---
RN Notes: Pt refused PM care, wound care, skin assessment. Encourage turning & repositioning q2h. Pt verbalized I am moving & turning by myself frequently. Education given. Pt verbalized understanding, still refused. Will continue to monitor.
[2021-02-21] MEDS: IPRATROPIUM NEB FS 0.5 MG/2.5 ML AMPUL.NEB NEB SCH ×4 (01:30→19:30)
[2021-02-21] MEDS: HYDROCODONE/APAP 5/325MG TABLET PO PRN ×5 (01:59→20:13)
[2021-02-21] MEDS: LORAZEPAM 1 MG TABLET PO PRN ×3 (01:59→06:53)
[2021-02-21] MEDS: CEFEPIME 2 GM in IV D5W 100 ML IV SCH ×2 (01:59→14:06)
[2021-02-21] MEDS: VANCOMYCIN 1 GM in IV D5W 250ml IV SCH (02:54)
[2021-02-21 04:00] VITALS: BP 123/67
--- NOTE | 2021-02-21 06:30 | NUR ---
RN notes Alert and oriented, verbally able to communicate needs. Complained of right below the knee amputation site pain, [place] x 2 given with relief. Requested ativan x 2 for anxiety, given with help. No distress noted. Breathing even and unlabored. Room air well tolerated. Kept clean and dry. Will endorse to next shift for continuity of care.
[2021-02-21 08:00] VITALS: BP 101/38
[2021-02-21 08:17] LABS: BASOPHILS # (AUTO) 0.1 K/uL (0.0-0.2); BASOPHILS % (AUTO) 0.6 % (0.0-2.0); HEMATOCRIT 36 % (39-51); HEMOGLOBIN 11.7 g/dL (13.5-17.5); LYMPHOCYTES # (AUTO) 3.2 K/uL (0.8-4.8); LYMPHOCYTES % (AUTO) 21.2 % (20.0-44.0); MEAN CORPUSCULAR HGB CONC 33 g/dl (31.0-36.0); MEAN CORPUSCULAR VOLUME 88 fL (80-96); MONOCYTES # (AUTO) 1.6 K/uL (0.1-1.30); MONOCYTES % (AUTO) 10.3 % (2.0-12.0); NEUTROPHILS % (AUTO) 65.9 % (43.0-81.0); RED BLOOD CELL COUNT(AUTO) 4.05 MIL/uL (4.5-6.0); WHITE BLOOD COUNT (AUTO) 15.2 K/uL (4.3-11.0)
[2021-02-21 08:20] LABS: CALCIUM, SERUM 8.2 mg/dL (8.5-10.1); CREATININE 1.2 mg/dL (0.6-1.3); POTASSIUM 3.5 mmol/L (3.5-5.1)
[2021-02-21] MEDS: FUROSEMIDE 20 MG TABLET PO SCH (08:26)
[2021-02-21] MEDS: ATORVASTATIN 10 MG TABLET PO SCH (08:26)
[2021-02-21] MEDS: BLOOD SUGAR DIAGNOSTIC 1 EACH STRIP VI SCH ×4 (08:30→20:25)
[2021-02-21] MEDS: IV NS 0.9% 1,000 ML IV SCH (10:51)
[2021-02-21] MEDS: INSULIN REGULAR, HUMAN 100 UNIT/ML 3 ML VIAL SQ PRN ×2 (12:34→14:50)
--- NOTE | 2021-02-21 12:35 | NUR ---
PATIENT REFUSES LAB DRAW FOR VANCOMYCIN. EDUCATION ABOUT REFUSAL AND WOSENING SKIN CONDITION. PATIENT VERBALIZES UNDERSTANDING OF TEACHING; SAYS "THERE ARE NO MORE VIENS TO DRAW FROM I AM NOT DOING IT. " KIKO SHORT RN
[2021-02-21 13:15] LABS: PLATELET COUNT (AUTO) 319 K/uL (150-450)
[2021-02-21 16:00] VITALS: BP 90/59
[2021-02-21] MEDS: RIVAROXABAN 15 MG TABLET PO SCH (17:22)
[2021-02-21] MEDS: GENTAMICIN 0.1% OINT 15 GM TUBE TP SCH (19:29)
--- NOTE | 2021-02-21 19:45 | NUR ---
RN NOTE Received pt. Alert and oriented x4, able to communicate needs. Complained of right below the knee amputation site pain 04/09. On room air, no SOB noted and no resp. distress. Breathing even and unlabored. IV (L) UA Midline patent and intact running NS@ 75ml/hr. Refuses (r) BKA site to be touched along with (L) leg wound. Safety measures in place, bed lowest position, call light within reach, side rails up x2. No acute distress noted at this time.
[2021-02-21] MEDS: CALCIUM CARBONATE 500 MG TAB.CHEW PO PRN (20:58)
[2021-02-22] VITALS: BP 126/58
[2021-02-22] MEDS: HYDROCODONE/APAP 5/325MG TABLET PO PRN ×5 (00:34→22:05)
[2021-02-22] MEDS: IPRATROPIUM NEB FS 0.5 MG/2.5 ML AMPUL.NEB NEB SCH ×4 (01:18→19:30)
[2021-02-22] MEDS: CEFEPIME 2 GM in IV D5W 100 ML IV SCH ×2 (01:54→13:44)
[2021-02-22] MEDS: LORAZEPAM 1 MG TABLET PO PRN (01:56)
--- NOTE | 2021-02-22 06:55 | NUR ---
RN CLOSING NOTE Pt. Alert and oriented x4, able to communicate needs. Complained of right below the knee amputation site and left heel pain and treated with PRN dose of Sulphur and Ativan x1 for anxiety and restlessness. On room air, no SOB noted and no resp. distress. Breathing even and unlabored. IV (L) UA Midline patent and intact saline lock. Refuses (r) BKA site to be touched along with (L) leg wound; refused all wound care. Only pictures of (L) Foot Heel were taken and placed in chart. Pt. refused AM labs, per typing teacher, they will re-try at a later time today. Safety measures in place, bed lowest position, call light within reach, side rails up x2. No acute distress noted at this time. Will endorse continuity of care to morning shift RN
[2021-02-22] MEDS: BLOOD SUGAR DIAGNOSTIC 1 EACH STRIP VI SCH ×4 (08:02→22:00)
[2021-02-22] MEDS: ATORVASTATIN 10 MG TABLET PO SCH (08:03)
[2021-02-22] MEDS: FUROSEMIDE 20 MG TABLET PO SCH (08:03)
[2021-02-22] MEDS: GENTAMICIN 0.1% OINT 15 GM TUBE TP SCH ×2 (08:09→17:00)
[2021-02-22] MEDS ORDERED: LEVO500T90 PO (08:24)
--- NOTE | 2021-02-22 12:13 | NUR ---
PATIENT REFUSES LABWORK SAYS HE IS BUSY RIGHT NOW TALKING ON TELEPHONE. KIKO SHORT RN
--- NOTE | 2021-02-22 13:21 | NUR ---
PATIENT REFUSED DRESSING CHANGE WITH MD. KIKO SHORT RN
[2021-02-22 16:00] VITALS: BP 123/72
--- NOTE | 2021-02-22 17:11 | NUR ---
PATIENT REFUSES ANTIBIOTIC CREAM AND DRESSING COVERS FOR WOUNDS. EDUCATION ON POSSIBLE FURTHER INFECTION. PATIENT AWARE AND MAINTAINS HE WANTS TO AIR OUT HIS WOUNDS. KIKO SHORT RN
[2021-02-22] MEDS: RIVAROXABAN 15 MG TABLET PO SCH (17:14)
--- NOTE | 2021-02-22 19:30 | NUR ---
RN OPENING NOTE RECEIVED PT AWAKE IN BED. A/O X4. PT STABLE ON ROOM AIR. NO SOB OR S/S OF RESPIRATORY DISTRESS NOTED. PT HAS NO C/O PAIN OR DISCOMFORT AT THIS TIME. IV ACCESS IN SARAHY MIDLINE INFUSING NS @ 75 ML/HR, INTACT AND PATENT. PT REFUSES BKA SITE TO BE TOUCHED ALONG WITH LEFT LEG WOUND. SAFETY MEASURES MAINTAINED. BED IN LOWEST LOCKED POSITION, HOB ELEVATED, SIDE RAILS UP X2. CALL LIGHT AND TABLE WITHIN REACH. WILL CONTINUE WITH PLAN OF CARE.
--- NOTE | 2021-02-22 22:12 | NUR ---
PT REFUSED ACCUCHECK AT THIS TIME AND STATED THAT HE "FEELS FINE AND DOES NOT NEED IT." PT EDUCATION GIVEN ON RISKS AND BENEFITS. WILL CONTINUE TO MONITOR PT.
--- NOTE | 2021-02-23 00:40 | NUR ---
MS RN NOTES RECEIVED PATIENT FORM AMBROSE VIA BED, ACCOMPANIED BY HODAN FREDERICK. PATIENT IS AWAKE, A&O X 4 ABLE TO LET NEEDS KNOWN. ON ROOM AIR TOLERATING WELL. NO SOB, NO ACUTE DISTRESS NOTED. IV ACCESS ON LEFT UPPER ARM NOTED, PATENT AND FLUSHES WELL. REFUSED TO RESTART IV FLUID. WOUND ON RIGHT BKA STUMP NOTED, WOUND ON LEFT FOOT NOTED. PATIENT REFUSED WOUND CARE TX. RISK AND BENEFITS EXPLAINED SEVERAL TIMES, STILL REFUSED. SAFETY PRECAUTIONS OBSERVED: BED ON LOWEST LOCKED POSITION, KEPT CALL LIGHT WITHIN EASY REACH, KEPT SIDE RAILS UP X 2. INSTRUCTED TO USE CALL LIGHT WHEN ASSISTANCE IS NEEDED. WILL CONTINUE TO MONITOR PATIENT'S CONDITION.
--- NOTE | 2021-02-23 00:45 | NUR ---
PT TRANSFERRED TO ROOM 307-1 PER ORDER. BEDSIDE REPORT GIVEN TO OTONIEL WALDEN.
[2021-02-23 00:54] VITALS: BP 123/72
[2021-02-23] MEDS: IPRATROPIUM NEB FS 0.5 MG/2.5 ML AMPUL.NEB NEB SCH ×3 (01:14→13:13)
[2021-02-23] MEDS: CEFEPIME 2 GM in IV D5W 100 ML IV SCH ×2 (01:52→14:00)
--- NOTE | 2021-02-23 01:53 | NUR ---
RN NOTES PATIENT REFUSED DUE ANTIBIOTIC. RISK AND BENEFITS EXPLAINED X 3, PATIENT STILL REFUSED.
--- NOTE | 2021-02-23 02:05 | NUR ---
PAIN MANAGEMENT PATIENT HAS C/O PAIN ON RIGHT BKA STUMP, WITH PAIN SCALE OF 7/10. DUE NORCO GIVEN ORDERED.
[2021-02-23] MEDS: HYDROCODONE/APAP 5/325MG TABLET PO PRN ×3 (02:06→12:09)
[2021-02-23] MEDS: LORAZEPAM 1 MG TABLET PO PRN (02:26)
--- NOTE | 2021-02-23 06:29 | NUR ---
MS RN CLOSING NOTES PATIENT IS AWAKE, A&O X 4 ABLE TO LET NEEDS KNOWN. ON ROOM AIR TOLERATING WELL. NO SOB, NO ACUTE DISTRESS NOTED. IV ACCESS ON LEFT UPPER ARM NOTED, PATENT AND FLUSHES WELL. WOUND ON RIGHT BKA STUMP NOTED, WOUND ON LEFT FOOT NOTED. PATIENT REFUSED WOUND CARE TX. RISK AND BENEFITS EXPLAINED SEVERAL TIMES, STILL REFUSED. NO COMPLAINTS OF PAIN AT THIS TIME. BLOOD GLUCOSE RESULT OF 103, NO INSULIN COVERAGE NEEDED. SAFETY PRECAUTIONS OBSERVED AND MAINTAINED DURING THE SHIFT: BED ON LOWEST LOCKED POSITION, KEPT CALL LIGHT WITHIN EASY REACH, KEPT SIDE RAILS UP X 2. INSTRUCTED TO USE CALL LIGHT WHEN ASSISTANCE IS NEEDED. ALL NEEDS ATTENDED AND MET. WILL ENDORSE TO MORNING SHIFT RN FOR JORGE.
[2021-02-23] MEDS: BLOOD SUGAR DIAGNOSTIC 1 EACH STRIP VI SCH ×2 (06:33→11:48)
--- NOTE | 2021-02-23 07:20 | NUR ---
RN OPENING NOTE RECEIVED PATIENT IN BED. A/O X4. NO SOB NOTED. IN NO APPARENT DISTRESS. DENIES ANY PAIN OR DISCOMFORT AT THIS TIME. IV ACCESS ON SARAHY MIDLINE, NS RUNNING X 75 ML/HR, INTACT AND PATENT. SAFETY MEASURES MAINTAINED. BED IN LOWEST POSITION, BRAKES LOCKED. SIDE RAILS UP X2. CALL LIGHT WITHIN REACH. WILL CONTINUE PLAN OF CARE.
[2021-02-23 07:45] LABS: CALCIUM, SERUM 8.4 mg/dL (8.5-10.1); CREATININE 1.1 mg/dL (0.6-1.3); POTASSIUM 3.9 mmol/L (3.5-5.1)
[2021-02-23 08:00] VITALS: BP 130/79
[2021-02-23] MEDS: ATORVASTATIN 10 MG TABLET PO SCH (08:31)
[2021-02-23] MEDS: FUROSEMIDE 20 MG TABLET PO SCH (08:31)
[2021-02-23] MEDS: GENTAMICIN 0.1% OINT 15 GM TUBE TP SCH (09:00)
--- NOTE | 2021-02-23 15:03 | NUR ---
RN NOTE PATIENT DISCHARGED. A/O X4. ON ROOM AIR, NO SOB NOTED. IN NO APPARENT DISTRESS. DISCHARGE INSTRUCTIONS AND HEALTH TEACHING GIVEN. PT VERBALIZED UNDERSTANDING. REPORT WAS GIVEN TO OTONIEL MILLS FROM [facility] AT 1440. PT WAS PICKED UP BY 2 EMT'S AND BROUGHT DOWN VIA GURNEY. PT REFUSED TO GET THE 1400 CEFEPIME ABX. REFUSED TO HAVE HIS WOUND TREATMENT DONE. PHOTO WOUND DOCUMENTATION DONE. REMOVED IV ACCESS AND ID [id number]. BELONGINGS CHECKED AND HANDED TO THE PT.
== END 2021-02-23 15:18 | DRG 349 ==
LOC: ER 10:22 → MEDSG1 14:27 → MED 02-23 00:18
PROVIDERS: ADMIT Internal Medicine; ATTEND Internal Medicine
PROC: 05HC33Z Insertion of Infusion Device into Left Basilic Vein, Percutaneous Approach (ICD-10-PCS; principal; 2021-02-20)
DX: T87.81 Dehiscence of amputation stump (principal); N17.0 Acute kidney failure with tubular necrosis; E87.1 Hypo-osmolality and hyponatremia; E87.2 Acidosis; K57.92 Diverticulitis of intestine, part unspecified, without perforation or abscess without bleeding; T31.0 Burns involving less than 10% of body surface; Z59.0 Homelessness; Z86.73 Personal history of transient ischemic attack (TIA), and cerebral infarction without residual deficits; Z89.511 Acquired absence of right leg below knee; L03.90 Cellulitis, unspecified; E03.9 Hypothyroidism, unspecified; Y92.89 Other specified places as the place of occurrence of the external cause; Y83.5 Amputation of limb(s) as the cause of abnormal reaction of the patient, or of later complication, without mention of misadventure at the time of the procedure; Z20.822 Contact with and (suspected) exposure to COVID-19; E78.5 Hyperlipidemia, unspecified; M19.90 Unspecified osteoarthritis, unspecified site; Z79.899 Other long term (current) drug therapy; Z79.01 Long term (current) use of anticoagulants; Z86.79 Personal history of other diseases of the circulatory system; Z88.8 Allergy status to other drugs, medicaments and biological substances; Z91.040 Latex allergy status; Z79.51 Long term (current) use of inhaled steroids; F29 Unspecified psychosis not due to a substance or known physiological condition; E86.1 Hypovolemia; E87.6 Hypokalemia; E11.9 Type 2 diabetes mellitus without complications; M25.421 Effusion, right elbow; I72.9 Aneurysm of unspecified site; F39 Unspecified mood [affective] disorder; E66.9 Obesity, unspecified; B96.89 Other specified bacterial agents as the cause of diseases classified elsewhere; X58.XXXA Exposure to other specified factors, initial encounter; Y92.9 Unspecified place or not applicable; T25.122A Burn of first degree of left foot, initial encounter; X08.8XXA Exposure to other specified smoke, fire and flames, initial encounter
CPT/HCPCS: 36415; 73070-TC; 73200-TC; 80048-TC; 80076-TC; 82962-TC; 85025-TC; 85730-TC; 87070-TC; 87081-TC; 87186-TC; 97110-TC; 97112-TC; 97530-TC; A4565; A6403; C9803; G0378; J0692; J1815; J3370; J7030; J7050; J7060; U0003